=== PATIENT | male | born 1955 ===

== ENCOUNTER 2023-03-02 15:54 | Outpatient (REF) | payer MEDICARE, MEDICAID, SELFPAY ==
--- NOTE | ~2023-03-02 | XR_ITS ---
EXAMINATION: XR CHEST CLINICAL INFORMATION: Cough. COMPARISON: None available. TECHNIQUE: 2 views of the chest were obtained. FINDINGS: The heart size is normal. The cardiac mediastinal contours are normal. No acute abnormality.. No focal consolidation or pleural effusion. Multilevel degenerative spondylosis spine. Chronic deformity of the right humeral head. Orthopedic screw in the right humeral head. Surgical clips right upper quadrant of abdomen. XR/XR chest 2V IMPRESSION: No acute abnormality of the chest.
== END 2023-03-02 15:55 | disposition home or self-care (01) ==
LOC: HO.XRAY 15:54
PROVIDERS: PCP Family Medicine; Visit Provider Family Medicine
DX: R05.9 Cough, unspecified (principal); R06.2 Wheezing; R06.02 Shortness of breath
CPT/HCPCS: 71046

== ENCOUNTER 2023-04-28 14:57 | Outpatient (REF) | payer MEDICARE, MEDICAID, SELFPAY ==
[2023-04-28 15:12] LABS: MANUAL DIFF FLAG NO
[2023-04-28 16:17] LABS: Basophils Percent Auto 0.1 % (0-2); Eosinophils Absolute Auto 0.1 X10*3/uL (0.0-0.4); Hematocrit 36.4 % (42.0-52.0); Hemoglobin 11.8 g/dl (14.0-18.0); Imm Gran Abs Auto 0.02 X10*3/uL (0.00-0.03); Imm Gran Pct Auto 0.3 % (0.0-0.4); Lymphocytes Absolute Auto 1.9 X10*3/uL (1.2-4.9); Lymphocytes Percent Auto 27.1 % (20-40); Mean Corpuscular HGB Conc 32.4 g/dl (31.0-36.0); Mean Corpuscular Hemoglobin 31.1 pg (27.0-33.0); Mean Platelet Volume 10.5 fL (9.4-12.4); Monocytes Absolute Auto 0.6 X10*3/uL (0.1-1.2); Monocytes Percent Auto 8.9 % (2-11); Neutrophils Absolute Auto 4.3 x10*3/uL (2.0-8.3); Neutrophils Percent Auto 61.6 % (45-73); Platelet Count 160 X10*3/uL (160-400); Red Blood Count 3.79 X10*6/uL (4.60-5.80); Red Cell Distribution Width 14.1 % (11.0-16.0); White Blood Count 6.9 X10*3/uL (4.8-10.8)
[2023-04-28 16:44] LABS: Alanine Aminotransferase 11 U/L (0-40); Albumin Level 3.5 g/dL (3.5-5.0); Alkaline Phosphatase 69 U/L (39-117); Anion Gap 12 (12-20); Aspartate Amino Transferase 14 U/L (5-37); Bilirubin Total 0.6 mg/dL (0.0-1.0); Blood Urea Nitrogen 27 mg/dL (9-16); Calcium 9.2 mg/dL (8.4-10.2); Carbon Dioxide 26 mmol/L (22-29); Chloride 109 mmol/L (96-108); Estimated Glomerular Filt Rate > 60; Glucose Random 95 mg/dL (60-115); Potassium 4.3 mmol/L (3.3-5.1); Sodium 143 mmol/L (135-145); Total Protein 6.9 g/dL (6.5-8.0)
[2023-04-28 17:02] LABS: Thyroid Stimulating Hormone 1.68 uIU/mL (0.32-4.0)
[2023-04-28 17:04] LABS: Prostate Specific Antigen Scr 0.31 ng/mL (<0.05-4.0)
== END 2023-04-28 14:58 | disposition home or self-care (01) ==
LOC: HO.LAB 14:57
PROVIDERS: PCP Family Medicine; Visit Provider Family Medicine
DX: Z12.5 Encounter for screening for malignant neoplasm of prostate (principal); R06.02 Shortness of breath; R53.83 Other fatigue; I10 Essential (primary) hypertension; N40.0 Benign prostatic hyperplasia without lower urinary tract symptoms
CPT/HCPCS: 36415; 80053; 84153; 84443; 85025

== ENCOUNTER 2023-11-16 15:01 | Outpatient (REF) | payer MEDICARE, MEDICAID, SELFPAY ==
[2023-11-16 15:18] LABS: MANUAL DIFF FLAG NO
[2023-11-16 15:50] LABS: Basophils Percent Auto 0.3 % (0-2); Eosinophils Absolute Auto 0.4 X10*3/uL (0.0-0.4); Eosinophils Percent Auto 5.6 % (0-4); Hematocrit 36.4 % (42.0-52.0); Hemoglobin 11.9 g/dl (14.0-18.0); Imm Gran Abs Auto 0.02 X10*3/uL (0.00-0.03); Imm Gran Pct Auto 0.3 % (0.0-0.4); Lymphocytes Absolute Auto 2.1 X10*3/uL (1.2-4.9); Lymphocytes Percent Auto 30.9 % (20-40); Mean Corpuscular HGB Conc 32.7 g/dl (31.0-36.0); Mean Corpuscular Hemoglobin 32.1 pg (27.0-33.0); Mean Corpuscular Volume 98.1 fL (80.0-98.0); Mean Platelet Volume 11.1 fL (9.4-12.4); Monocytes Absolute Auto 0.6 X10*3/uL (0.1-1.2); Monocytes Percent Auto 8.4 % (2-11); Neutrophils Absolute Auto 3.7 x10*3/uL (2.0-8.3); Neutrophils Percent Auto 54.5 % (45-73); Red Blood Count 3.71 X10*6/uL (4.60-5.80); Red Cell Distribution Width 12.3 % (11.0-16.0); White Blood Count 6.8 X10*3/uL (4.8-10.8)
[2023-11-16 15:57] LABS: Iron 70 mcg/dL (45-160); Percent Iron Saturation 26 % (15-50); Total Iron Binding Capacity 266 mcg/dL (228-428); Unsaturated Iron Binding 196 ug/dL
[2023-11-16 16:18] LABS: Platelet Count 90 X10*3/uL (160-400)
== END 2023-11-16 15:02 | disposition home or self-care (01) ==
LOC: HO.LAB 15:01
PROVIDERS: PCP Family Medicine; Visit Provider Family Medicine
DX: D62 Acute posthemorrhagic anemia (principal)
CPT/HCPCS: 36415; 83540; 85025

== ENCOUNTER 2024-04-19 08:02 | Outpatient (AMB) | payer MEDICARE, MEDICAID, SELFPAY ==
--- NOTE | 2024-04-19 08:18 | A.OFFVIS_ITS ---
Vital Signs 04/19/24 08:24 Height 5 ft 4 in Weight 272 lb BMI 46.7 BP 135/62 Blood Pressure Location Rt brachial Position Sitting Pulse 77 Intake Visit Reasons: [facility] Intake Note: Patient referred by pcp Dr. Khan for right inguinal hernia. Present for 10-11mo. Patient c/o: uncomfortable changing positions like getting in and out of car. Rayus Scrotal US: 04-08-24. [employer] Required: No Accompanied by: Self / Same As Patient HPI Comments Details: Patient presents for evaluation of right groin pain and swelling which he has had a proximally 1 year's time. Workup including sonogram demonstrates a right inguinal hernia. Patient has a very complex past medical and surgical history. He has had multiple abdominal surgeries including small bowel resection, gallbladder, colon resection ostomy, reversal, ventral hernia repair, 6 months ago he had a cardiac valve (AVR) replaced. Chart was reviewed and patient evaluated [facility] Medical History (Updated 04/15/24 @ 14:34 by ELLIS Brown) Overactive bladder Essential (primary) hypertension Nonrheumatic aortic (valve) stenosis Acute bronchitis Wheezing Hypotension, unspecified Fatigue Shortness of breath Unspecified displaced fracture of surgical neck of right humerus, subsequent encounter for fracture with delayed healing Obstructive sleep apnea (adult) (pediatric) Congenital central alveolar hypoventilation syndrome Irritable bowel syndrome with diarrhea Unspecified osteoarthritis, unspecified site Atherosclerotic heart disease of [place] coronary artery with unstable angina pectoris Obesity Peripheral vascular disease Acute post-hemorrhagic anemia Scrotal varices Surgical History (Updated 04/19/24 @ 08:34 by Augusto Mendoza MD) History of hernia repair Hx laparoscopic cholecystectomy Presence of artificial knee joint, bilateral History of prosthetic heart valve Social History Alcohol intake: current Alcohol intake frequency: holidays/special occasions only Alcohol type: hard liquor Patient Tobacco Use Status: Never used Tobacco Physical Exam Vital Signs: Last Vital Signs Pulse 77 04/19/24 08:24 BP 135/62 04/19/24 08:24 BMI result Body Mass Index 46.7 Const Other: Very pleasant corpulent male Chest Other: Chest breath sounds bilaterally, HS 1 in 2 GI Other: Patient was examined both supine and standing with Valsalva. Extremely corpulent abdomen. Large pannus. Multiple abdominal wall scars. Difficult exam secondary to the patient's large size. Left groin negative. Genitalia grossly within normal limits. Right inguinal hernia Assessment & Plan Assessment & Plan (1) Right inguinal hernia: Code(s): K40.90 - Unilateral inguinal hernia, without obstruction or gangrene, not specified as recurrent Category: Surgical Plan Risks, benefits, and alternatives open inguinal hernia repair with mesh were reviewed with the patient included but not limited to bleeding, infection, recurrence, numbness, pain, scarring and the patient wishes to proceed. All questions answered. Arrangements were made for this. Coding Level of Care Code New Pt Level 5 (27858) Diagnoses Right inguinal hernia K40.90
[2024-04-19 08:24] VITALS: BP 135/62; PULSE 77; BMI 46.7
== END 2024-04-19 08:44 | disposition home or self-care (01) ==
PROVIDERS: PCP Family Medicine; Referring Provider Family Medicine; Visit Provider Surgery
DX: K40.90 Unilateral inguinal hernia, without obstruction or gangrene, not specified as recurrent (principal)
CPT/HCPCS: 99204

== ENCOUNTER → 2024-04-19 08:02 | Outpatient (BNVA) | payer MEDICARE, MEDICAID, SELFPAY | PROVIDERS: PCP Family Medicine; Referring Provider Family Medicine; Visit Provider Surgery | DX: K40.90 Unilateral inguinal hernia, without obstruction or gangrene, not specified as recurrent (principal) | CPT/HCPCS: 99202 ==

== ENCOUNTER 2024-04-26 08:08 | Outpatient (REF) | payer MEDICARE, MEDICAID, SELFPAY ==
[2024-04-26 08:29] LABS: MANUAL DIFF FLAG NO
[2024-04-26 09:11] LABS: Basophils Percent Auto 0.2 % (0-2); Eosinophils Absolute Auto 0.4 X10*3/uL (0.0-0.4); Eosinophils Percent Auto 5.6 % (0-4); Hematocrit 37.4 % (42.0-52.0); Hemoglobin 12.7 g/dl (14.0-18.0); Imm Gran Abs Auto 0.03 X10*3/uL (0.00-0.03); Imm Gran Pct Auto 0.5 % (0.0-0.4); Lymphocytes Absolute Auto 1.7 X10*3/uL (1.2-4.9); Lymphocytes Percent Auto 27.3 % (20-40); Mean Corpuscular Volume 97.1 fL (80.0-98.0); Mean Platelet Volume 10.6 fL (9.4-12.4); Monocytes Absolute Auto 0.5 X10*3/uL (0.1-1.2); Monocytes Percent Auto 8.7 % (2-11); Neutrophils Absolute Auto 3.6 x10*3/uL (2.0-8.3); Neutrophils Percent Auto 57.7 % (45-73); Platelet Count 108 X10*3/uL (160-400); Red Blood Count 3.85 X10*6/uL (4.60-5.80); Red Cell Distribution Width 12.8 % (11.0-16.0); White Blood Count 6.2 X10*3/uL (4.8-10.8)
[2024-04-26 09:30] LABS: Estimated Average Glucose 103 mg/dL; Hemoglobin A1c % 5.2 % (<6.0)
[2024-04-26 09:47] LABS: Anion Gap 9 (12-20); Blood Urea Nitrogen 19 mg/dL (9-16); Carbon Dioxide 27 mmol/L (22-29); Chloride 109 mmol/L (96-108); Cholesterol 202 mg/dL (<200); Estimated Glomerular Filt Rate > 60; Glucose Fasting 100 mg/dL (60-99); HDL Cholesterol 51 mg/dL (>40); LDL Cholesterol Calculated 138 mg/dL (<100); Potassium 3.8 mmol/L (3.3-5.1); Sodium 141 mmol/L (135-145); Triglycerides 66 mg/dL (<150)
== END 2024-04-26 08:09 | disposition home or self-care (01) ==
LOC: HO.LAB 08:08
PROVIDERS: PCP Family Medicine; Visit Provider Family Medicine
DX: I10 Essential (primary) hypertension (principal); D64.9 Anemia, unspecified; E78.00 Pure hypercholesterolemia, unspecified
CPT/HCPCS: 36415; 80051; 80061; 82565; 82947; 83036; 84520; 85025

== ENCOUNTER → 2024-05-17 14:48 | Outpatient (BNV) | payer MEDICARE, MEDICAID, SELFPAY | PROVIDERS: PCP Family Medicine; Visit Provider Internal Medicine Cardiovascular Disease | DX: R94.31 Abnormal electrocardiogram [ECG] [EKG] (principal) | CPT/HCPCS: 93010 ==

== ENCOUNTER 2024-05-26 08:43 | Day surgery (SDC) | payer MEDICARE, MEDICAID, SELFPAY ==
--- NOTE | 2024-05-17 | ECG_ITS ---
Test Reason : PRE OP Blood Pressure : / mmHG Vent. Rate : 069 BPM Atrial Rate : 069 BPM P-R Int : 212 ms QRS Dur : 098 ms QT Int : 378 ms P-R-T Axes : 017 -30 009 degrees QTc Int : 405 ms Sinus rhythm with 1st degree A-V block Left axis deviation Abnormal ECG No previous ECGs available Referred By: Joselin Lake Electronically Signed By:Keyon Fields
[2024-05-17 14:03] VITALS: BP 148/78; PULSE 74; RESP 16; O2SAT 96; BMI 46.7
--- NOTE | 2024-05-17 14:22 | P.CONAN_ITS ---
Documented by User: Joselin Lake NP 05/25/24 09:18 HPI - Anesthesia Eval Consult details Narrative: 68yo M for Hernia Inguinal Irreducible with mesh, 05/26/24 Optimized per cardiology BMI: 46 No recent illness No CP/SOB with limited activity. Some KNIGHT with extreme heat Aortic stenosis s/p TAVR 10/2023 CAD: Mod CAD on pre TAVR cath, IFR negative RCA FRANKO: No CPAP, cannot tolerate Asthma: No need for rescue inhaler before Plan for temporary crowns preop PMFSH Active Problems Active Problems: All Active Problems Right inguinal hernia (Acute) Past Medical History Medical History Surgery, elective BPH (benign prostatic hyperplasia) IBS (irritable bowel syndrome) Chronic diarrhea Short bowel syndrome FRANKO (obstructive sleep apnea) Asthma Overactive bladder Essential (primary) hypertension Nonrheumatic aortic (valve) stenosis Acute bronchitis Wheezing Hypotension, unspecified Fatigue Shortness of breath Unspecified displaced fracture of surgical neck of right humerus, subsequent encounter for fracture with delayed healing Obstructive sleep apnea (adult) (pediatric) Congenital central alveolar hypoventilation syndrome Irritable bowel syndrome with diarrhea Unspecified osteoarthritis, unspecified site Atherosclerotic heart disease of [place] coronary artery with unstable angina pectoris Obesity Peripheral vascular disease Acute post-hemorrhagic anemia Scrotal varices Family History Family history of problems with anesthesia: No Surgical History Surgical History Hx of foot surgery Aortic valve replaced (~10/2023) Hx of colonoscopy Hx of appendectomy (~1983) History of gastric surgery (~2006) History of colon surgery (~1993) History of total bilateral knee replacement (TKR) (~2015) History of hernia repair Hx laparoscopic cholecystectomy (~2009) Presence of artificial knee joint, bilateral History of prosthetic heart valve History of Problems with Anesthesia: No Social History Social History Household Members: Other Household Members Other:: adult special needs son Housing: House Are you a primary animal care supervisor to a significant other at home: Yes (adult special needs son) Do you presently have visiting nurse or other home services: No Alcohol intake: current Alcohol intake frequency: holidays/special occasions only Alcohol type: hard liquor Patient Tobacco Use Status: Never used Tobacco Use of substances other than those prescribed or required for medical reasons: No Have you been hit, kicked, punched, or otherwise hurt by someone within the past year? If so, by whom?: No Are you DNR?: No Advance Directives: No Advance Directives Information Provided: Yes Advance Directives on File: No Recently lost weight without trying: No Nutrition Risks: No Nutritional Risk Meds Allergies Allergy/AdvReac Type Severity Reaction Status Date / Time No Known Allergies Allergy Verified 05/17/24 13:37 Home Medications ?Medication ?Instructions ?Recorded ?Confirmed ?Last Taken ?Type amlodipine 5 mg tablet 5 mg PO DAILY 04/19/24 05/17/24 05/26/24 History aspirin 81 mg tablet,delayed 81 mg PO DAILY 04/19/24 05/17/24 Unknown History release diphenoxylate-atropine 2.5 2 tab PO TID PRN Diarrhea 04/19/24 05/17/24 Unknown History mg-0.025 mg tablet furosemide 40 mg tablet 40 mg PO DAILY PRN swelling 04/19/24 05/17/24 Unknown History lisinopril 40 mg tablet 40 mg PO DAILY 04/19/24 05/17/24 Unknown History tamsulosin 0.4 mg capsule 0.4 mg PO BEDTIME 04/19/24 05/17/24 Unknown History terazosin 10 mg capsule 10 mg PO BEDTIME 04/19/24 05/17/24 Unknown History psyllium husk 0.52 gram capsule 0.52 g PO TID 05/17/24 05/17/24 Unknown History Exam Height,Weight and Vital Signs: Height 5 ft 4 in Weight 123.377 kg Last Vital Signs Pulse 74 05/17/24 14:03 Resp 16 05/17/24 14:03 BP 148/78 H 05/17/24 14:03 Pulse Ox 96 05/17/24 14:03 O2 Del Method Room Air 05/17/24 14:03 Pertinent Lab Results Pertinent Lab Results: Laboratory Tests 04/26/24 08:28 WBC 6.2 Hgb 12.7 L Hct 37.4 L Plt Count 108 L Sodium 141 Potassium 3.8 Chloride 109 H Carbon Dioxide 27 BUN 19 H Creatinine 0.73 Narrative Narrative: EKG 05/2024 Vent. Rate : 069 BPM Atrial Rate : 069 BPM P-R Int : 212 ms QRS Dur : 098 ms QT Int : 378 ms P-R-T Axes : 017 -30 009 degrees QTc Int : 405 ms Sinus rhythm with 1st degree A-V block Left axis deviation Abnormal ECG No previous ECGs available ECHO 11/2023 Summary Normal left ventricular size. Mildly increased left ventricular thickness. Normal left ventricular function. Visually estimated LVEF 60-65%. There is no definite regional wall motion abnormalities seen in limited views. Moderate diastolic dysfunction. Grossly normal right size and function. There is a well-seated TAVR valve. No significant intra valvular regurgitation or paravalvular leak. The mean gradient is 17 mmHg. There is no pericardial effusion. Comparison Comparison is made to the study of October 21, 2023. Diastolic dysfunction is now moderate from mild. Airway Mallampati Class: I TM Dist: >3cm Neck ROM: Full Partial: Upper Loose/Missing/Broken Teeth: No (Lower molars missing, ) Heart: RRR Lungs: CTAB Assessment and Plan Assessment Anesthesia Assessment: Anesthesia Plan Discussed and PAT Visit Final Anesthetic Review Family History of Problems with Anesthesia: No History of Problems with Anesthesia: No Documented by User: Joanna Alas MD 05/26/24 15:21 [facility] Active Problems Active Problems: All Active Problems Right inguinal hernia (Acute) Morbid Obesity BMI 47.1 RUE fracture FRANKO. Not using CPAP Asthma- no inhaler use for years S/p TAVR 10/2023 CAD PVD BPH Past Medical History Medical History Surgery, elective BPH (benign prostatic hyperplasia) IBS (irritable bowel syndrome) Chronic diarrhea Short bowel syndrome FRANKO (obstructive sleep apnea) Asthma Overactive bladder Essential (primary) hypertension Nonrheumatic aortic (valve) stenosis Acute bronchitis Wheezing Hypotension, unspecified Fatigue Shortness of breath Unspecified displaced fracture of surgical neck of right humerus, subsequent encounter for fracture with delayed healing Obstructive sleep apnea (adult) (pediatric) Congenital central alveolar hypoventilation syndrome Irritable bowel syndrome with diarrhea Unspecified osteoarthritis, unspecified site Atherosclerotic heart disease of [place] coronary artery with unstable angina pectoris Obesity Peripheral vascular disease Acute post-hemorrhagic anemia Scrotal varices Family History Family history of problems with anesthesia: No Surgical History Surgical History Hx of foot surgery Aortic valve replaced (~10/2023) Hx of colonoscopy Hx of appendectomy (~1983) History of gastric surgery (~2006) History of colon surgery (~1993) History of total bilateral knee replacement (TKR) (~2015) History of hernia repair Hx laparoscopic cholecystectomy (~2009) Presence of artificial knee joint, bilateral History of prosthetic heart valve History of Problems with Anesthesia: No Social History Social History Household Members: Other Household Members Other:: adult special needs son Housing: House Are you a primary animal care supervisor to a significant other at home: Yes (adult special needs son) Do you presently have visiting nurse or other home services: No Alcohol intake: current Alcohol intake frequency: holidays/special occasions only Alcohol type: hard liquor Patient Tobacco Use Status: Never used Tobacco Use of substances other than those prescribed or required for medical reasons: No Have you been hit, kicked, punched, or otherwise hurt by someone within the past year? If so, by whom?: No Are you DNR?: No Advance Directives: No Advance Directives Information Provided: Yes Advance Directives on File: No Recently lost weight without trying: No Nutrition Risks: No Nutritional Risk Meds Allergies Allergy/AdvReac Type Severity Reaction Status Date / Time No Known Allergies Allergy Verified 05/17/24 13:37 Home Medications ?Medication ?Instructions ?Recorded ?Confirmed ?Last Taken ?Type amlodipine 5 mg tablet 5 mg PO DAILY 04/19/24 05/17/24 05/26/24 History aspirin 81 mg tablet,delayed 81 mg PO DAILY 04/19/24 05/17/24 Unknown History release diphenoxylate-atropine 2.5 2 tab PO TID PRN Diarrhea 04/19/24 05/17/24 Unknown History mg-0.025 mg tablet furosemide 40 mg tablet 40 mg PO DAILY PRN swelling 04/19/24 05/17/24 Unknown History lisinopril 40 mg tablet 40 mg PO DAILY 04/19/24 05/17/24 Unknown History tamsulosin 0.4 mg capsule 0.4 mg PO BEDTIME 04/19/24 05/17/24 Unknown History terazosin 10 mg capsule 10 mg PO BEDTIME 04/19/24 05/17/24 Unknown History psyllium husk 0.52 gram capsule 0.52 g PO TID 05/17/24 05/17/24 Unknown History Exam Height,Weight and Vital Signs: Height 5 ft 4 in Weight 123.377 kg Last Vital Signs Pulse 74 05/17/24 14:03 Resp 16 05/17/24 14:03 BP 148/78 H 05/17/24 14:03 Pulse Ox 96 05/17/24 14:03 O2 Del Method Room Air 05/17/24 14:03 Height 5 ft 4 in Weight 124.454 kg Vital Signs Temp Pulse Resp BP Pulse Ox O2 Del Method 05/26/24 09:40 98.0 F 68 16 134/71 98 Room Air Airway Mallampati Class: II TM Dist: >3cm Neck ROM: Full Partial: Upper and Lower Heart: RRR +murmur Lungs: CTAB Assessment and Plan Assessment Anesthesia Assessment: Anesthesia Plan Discussed and Chart Reviewed Final Anesthetic Review Family History of Problems with Anesthesia: No History of Problems with Anesthesia: No NPO: Yes ASA Class: III Final Preanesthetic Review: No Changes in Pt Med Stat, Meds/Allgs Chart Reviewed, Consent Obtained/Reviewed and Anes Risks/Benef Reviewed Patient Risk: Intermediate Procedure Risk: Low Assessment/Block/Sedation in SS: Assess/Block/Sedation-SS Anesthetic Plan Anesthetic Plan: GA Disposition: Standard PACU
--- NOTE | 2024-05-25 07:52 | MHC.SHP ---
Pre-Procedural Eval Section A - 24 Hr Update-Section A only Date of Service: 05/26/24 The patient is an INPATIENT: No Changes since office visit: No Cold of Flu in the past 2 weeks, No New Medical Problems, No Changes in Medication and No Patient answered all questions Section B - Complete if H&P > 30 days Chief Complaint: Unilateral inguinal hernia, without obstruction or Allergies: Allergies Allergy/AdvReac Type Severity Reaction Status Date / Time No Known Allergies Allergy Verified 05/17/24 13:37 Plan I have reviewed the history and physical and performed a pertinent physical examination on my patient. No changes have occurred unless specified. Time Spent With Patient Time: Total time managing care of this patient today ____ minutes.
[2024-05-26] VITALS (7 sets, daily range): BP systolic 134–169; BP diastolic 67–81; PULSE 55–68; RESP 16–18; TEMP 36.3–36.7; O2SAT 96–98; BMI 47.1
[2024-05-26] MEDS: Lactated Ringers 1,000 ML 100 ML IVCONT (09:51)
--- NOTE | 2024-05-26 14:13 | P.HPSUR_ITS ---
Pre-Procedural Eval Section A - 24 Hr Update-Section A only Date of Service: 05/26/24 The patient is an INPATIENT: No Changes since office visit: No Cold of Flu in the past 2 weeks, No New Medical Problems, No Changes in Medication and No Patient answered all questions The patient has been examined within 24 hours of the surgical procedure. The History & Physical has been completed within 30 days and I have reviewed it.: Yes Section B - Complete if H&P > 30 days Chief Complaint: Unilateral inguinal hernia, without obstruction or Allergies: Allergies Allergy/AdvReac Type Severity Reaction Status Date / Time No Known Allergies Allergy Verified 05/17/24 13:37 Review of Systems Sugical H&P ROS: Negative: Constitution, Cardiovascular, Respiratory, Neurological, Psychiatric, Hem-Onc, Allergic/Immunologic, Gastrointestinal, Genitourinary, Musculoskeletal, Integumentary, Endocrine and Eyes/Ears/Nose/Th roat Exam Surgical H&P Exam: Normal: HEENT, Normal: Heart, Normal: Lungs, Normal: Extremities, Normal: Abdomen, Normal: Skin and Normal: Neurological Plan I have reviewed the history and physical and performed a pertinent physical examination on my patient. No changes have occurred unless specified. Time Spent With Patient Time: Total time managing care of this patient today ____ minutes.
--- NOTE | 2024-05-26 15:42 | W.PM.OPN ---
Operative Note Operative Note Date of Service: 05/26/24 Narrative: Preoperative diagnosis: [] Right complete/scrotal incarcerated inguinal hernia Postop diagnosis: [] The same Procedure [] open right inguinal herniorrhaphy with Bard mesh Surgeon: [] [employer]: [] Student Type of Anesthesia: [] General Indication for surgery: [] Incarcerated scrotal/complete right inguinal hernia with omental contents. Very large/morbidly obese patient Findings: [] Patient brought to the operating room, placed on operative table supine position, after an adequate level general anesthesia was induced, the patient's abdomen which was extremely corpulent was prepped and draped in usual sterile fashion. Using a right para inguinal incision, this carried down through skin, subcutaneous tissue, Mandi's fascia. External oblique fibers were opened in their direction with care to isolate and preserve the ilioinguinal nerve throughout the procedure. Spermatic cord was identified and retracted from the field. A massive indirect scrotal hernia was reduced and brought onto the field. No direct hernia was demonstrated. The hernia was reduced and an extra-large Bard plug was placed in this defect. This was sutured inferiorly to the inguinal ligament and superiorly to the transversalis fascia using interrupted 0 Ethibond suture. At completion of procedure mesh was in good position, under no tension and also covered the inguinal floor. . Wound was irrigated, secured hemostasis. It was closed in the following manner; external oblique fascia was closed using running 2-0 Vicryl suture. Mandi's fascia was reapproximated using interrupted 3-0 Vicryl sutures. Interrupted inverted deep dermal 3-0 Vicryl sutures followed by running subcuticular 4-0 Vicryl sutures were placed. Steri-Strips and sterile dressings were applied. Wound was infiltrated the beginning of the case with the ilioinguinal block and then local infiltration of 0.5 Marcaine. Ipsilateral testicle was intrascrotal at completion. Sponge, needle, and instrument counts reported correct. Patient tolerated the procedure well and emerged from anesthesia stable condition. EBL minimal
[2024-05-26] MEDS: oxyCODONE HCl Immed Release 5 MG TABLET PO (16:25)
== END 2024-05-26 17:20 | disposition home or self-care (01) ==
PROVIDERS: PCP Family Medicine; Visit Provider Surgery
PROC: (CPT 49507; principal; 2024-05-26 11:50)
DX: K40.30 Unilateral inguinal hernia, with obstruction, without gangrene, not specified as recurrent (principal); K58.0 Irritable bowel syndrome with diarrhea; I10 Essential (primary) hypertension; I25.110 Atherosclerotic heart disease of native coronary artery with unstable angina pectoris; I95.9 Hypotension, unspecified; I73.9 Peripheral vascular disease, unspecified; G47.33 Obstructive sleep apnea (adult) (pediatric); E66.01 Morbid (severe) obesity due to excess calories; Z68.42 Body mass index [BMI] 45.0-49.9, adult; Z90.49 Acquired absence of other specified parts of digestive tract; Z95.2 Presence of prosthetic heart valve; Z98.890 Other specified postprocedural states
CPT/HCPCS: 49507; 93005; C1781; J0690; J1100; J2250; J2405; J2704; J2795; J3010

== ENCOUNTER → 2024-05-26 08:43 | Outpatient (BNV) | payer MEDICARE, MEDICAID, SELFPAY | PROVIDERS: PCP Family Medicine; Visit Provider Surgery | DX: K40.90 Unilateral inguinal hernia, without obstruction or gangrene, not specified as recurrent (principal) | CPT/HCPCS: 49507 ==

== ENCOUNTER 2024-06-06 09:29 | Outpatient (AMB) | payer MEDICARE, MEDICAID, SELFPAY ==
--- NOTE | 2024-06-06 09:31 | A.OFFVIS_ITS ---
Vital Signs 06/06/24 09:37 Height 5 ft 4 in Weight 268 lb 8.368 oz BMI 46.1 Pulse 60 Intake Visit Reasons: S/P RIH w/mesh Intake Note: Patient is seen in office for post op assessment post open right inguinal herniorrhaphy with Bard mesh. Pt c/o: admits to sore and tender, denies redness, discharge or any other complications Op:05/26/24 [employer] Section Required: No Accompanied by: Self / Same As Patient Allergies No Known Allergies Allergy (Verified 06/06/24 09:37) HPI Comments Details: Patient presents for follow-up. Aside from incisional discomfort which is improving, patient was doing well. He is tolerating a diet. Having regular bowel habits. He has no wound issues or complaints. [facility] Medical History Surgery, elective BPH (benign prostatic hyperplasia) IBS (irritable bowel syndrome) Chronic diarrhea Short bowel syndrome FRANKO (obstructive sleep apnea) Asthma Overactive bladder Essential (primary) hypertension Nonrheumatic aortic (valve) stenosis Acute bronchitis Wheezing Hypotension, unspecified Fatigue Shortness of breath Unspecified displaced fracture of surgical neck of right humerus, subsequent encounter for fracture with delayed healing Obstructive sleep apnea (adult) (pediatric) Congenital central alveolar hypoventilation syndrome Irritable bowel syndrome with diarrhea Unspecified osteoarthritis, unspecified site Atherosclerotic heart disease of [place] coronary artery with unstable angina pectoris Obesity Peripheral vascular disease Acute post-hemorrhagic anemia Scrotal varices Surgical History Hx of right inguinal hernia repair (05/26/24) Hx of foot surgery Aortic valve replaced (~10/2023) Hx of colonoscopy Hx of appendectomy (~1983) History of gastric surgery (~2006) History of colon surgery (~1993) History of total bilateral knee replacement (TKR) (~2015) History of hernia repair Hx laparoscopic cholecystectomy (~2009) Presence of artificial knee joint, bilateral History of prosthetic heart valve Social History Household Members: Other Household Members Other:: adult special needs son Housing: House Are you a primary healthcare facility administrator to a significant other at home: Yes (adult special needs son) Do you presently have visiting nurse or other home services: No Alcohol intake: current Alcohol intake frequency: holidays/special occasions only Alcohol type: hard liquor Patient Tobacco Use Status: Never used Tobacco Physical Exam Vital Signs: Last Vital Signs Pulse 60 06/06/24 09:37 BMI result Body Mass Index 46.1 GI Other: Abdomen corpulent, soft, benign. Incision clean dry and intact Assessment & Plan Assessment & Plan (1) Postop check: Code(s): Z09 - Encounter for follow-up examination after completed treatment for conditions other than malignant neoplasm Category: Surgical (2) Status post hernia repair: Code(s): Z98.890 - Other specified postprocedural states; Z87.19 - Personal history of other diseases of the digestive system Category: Surgical Plan Patient has been given local instructions including avoiding strenuous activities for next few weeks time and will otherwise follow-up p.r.n.. All questions answered Coding Level of Care Code Global (62532) Diagnoses Postop check Z09 Status post hernia repair Z98.890; Z87.19
[2024-06-06 09:37] VITALS: PULSE 60; BMI 46.1
== END 2024-06-06 09:40 | disposition home or self-care (01) ==
PROVIDERS: PCP Family Medicine; Visit Provider Surgery
DX: Z09 Encounter for follow-up examination after completed treatment for conditions other than malignant neoplasm (principal); Z98.890 Other specified postprocedural states; Z87.19 Personal history of other diseases of the digestive system
CPT/HCPCS: 99024

== ENCOUNTER → 2024-06-06 09:29 | Outpatient (BNVA) | payer MEDICARE, MEDICAID, SELFPAY | PROVIDERS: PCP Family Medicine; Visit Provider Surgery | DX: Z09 Encounter for follow-up examination after completed treatment for conditions other than malignant neoplasm (principal); Z98.890 Other specified postprocedural states; Z87.19 Personal history of other diseases of the digestive system | CPT/HCPCS: 99212 ==

== ENCOUNTER 2024-10-26 16:35 | Outpatient (REF) | payer MEDICARE, MEDICAID, SELFPAY ==
--- NOTE | ~2024-10-26 | XR_ITS ---
EXAMINATION: XR CHEST CLINICAL INFORMATION: SOB, S/P TAVR COMPARISON: 03/02/2023 TECHNIQUE: PA and lateral views of the chest were obtained. FINDINGS: Pulmonary venous congestion. No pulmonary edema. No consolidation, pneumothorax, or pleural effusion. Borderline cardiomegaly. Status post TAVR. Trachea is midline. Degenerative disc disease in the thoracic spine. Osteoarthritis is present in the acromioclavicular and glenohumeral joints. XR/XR chest 2V IMPRESSION: Pulmonary venous congestion. No pulmonary edema. Electronically signed by: Nick Oviedo MD 10/29/2024 11:12 PM [facility]
[2024-10-26 16:52] LABS: MANUAL DIFF FLAG NO
[2024-10-26 19:47] LABS: Basophils Percent Auto 0.3 % (0-2); Eosinophils Absolute Auto 0.3 X10*3/uL (0.0-0.4); Eosinophils Percent Auto 4.2 % (0-4); Hematocrit 35.2 % (42.0-52.0); Hemoglobin 11.9 g/dl (14.0-18.0); Imm Gran Abs Auto 0.01 X10*3/uL (0.00-0.03); Imm Gran Pct Auto 0.2 % (0.0-0.4); Lymphocytes Absolute Auto 1.7 X10*3/uL (1.2-4.9); Lymphocytes Percent Auto 26.7 % (20-40); Mean Corpuscular HGB Conc 33.8 g/dl (31.0-36.0); Mean Corpuscular Hemoglobin 33.1 pg (27.0-33.0); Mean Corpuscular Volume 98.1 fL (80.0-98.0); Monocytes Absolute Auto 0.6 X10*3/uL (0.1-1.2); Monocytes Percent Auto 9.8 % (2-11); Neutrophils Absolute Auto 3.8 x10*3/uL (2.0-8.3); Neutrophils Percent Auto 58.8 % (45-73); Red Blood Count 3.59 X10*6/uL (4.60-5.80); Red Cell Distribution Width 14.5 % (11.0-16.0); White Blood Count 6.4 X10*3/uL (4.8-10.8)
[2024-10-26 19:52] LABS: Platelet Count 71 X10*3/uL (160-400)
[2024-10-26 20:09] LABS: Alanine Aminotransferase 13 U/L (0-40); Anion Gap 9 (12-20); Aspartate Amino Transferase 21 U/L (5-37); Blood Urea Nitrogen 19 mg/dL (9-16); Carbon Dioxide 29 mmol/L (22-29); Chloride 108 mmol/L (96-108); Estimated Glomerular Filt Rate > 60; Potassium 4.6 mmol/L (3.3-5.1); Sodium 141 mmol/L (135-145)
[2024-10-26 20:24] LABS: Free T4 (Free Thyroxine) 1.17 ng/dL (0.71-1.85)
[2024-10-26 21:23] LABS: Erythrocyte Sedimentation Rate 14 MM/HR (0-15)
== END 2024-10-26 16:36 | disposition home or self-care (01) ==
LOC: HO.LAB 16:35
PROVIDERS: PCP Family Medicine; Visit Provider Family Medicine
DX: I10 Essential (primary) hypertension (principal); R53.83 Other fatigue; R06.02 Shortness of breath
CPT/HCPCS: 36415; 71046; 80051; 82550; 82565; 84439; 84450; 84460; 84520; 85025; 85652